=== PATIENT | male | born 1980 | race Two or more races ===

== ENCOUNTER 2017-03-14 00:16 | Emergency (ER) | payer MEDICAID, OTHER ==
[~2017-03-14] VITALS: Ht 172.7 cm; Wt 72.6 kg
[~2017-03-14 00:16] MED LIST: BENTYL10 MG ORAL; IBUPROFEN600 MG ORAL; MAALOX ADVANCE770 ML PO; NKM; NORCO 5-325 TA1 EACH ORAL
[2017-03-14 00:35] VITALS: BP 144/76
[2017-03-14] MEDS ORDERED: Lidocaine 1% MPF 10mg/ml 5ml INJ ONE (00:45)
[2017-03-14] MEDS ORDERED: Azithromycin 250mg tab ORAL ONE (00:45)
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
[2017-03-14 01:15] VITALS: BP 144/76
== END 2017-03-14 01:15 | disposition home or self-care (01) ==
LOC: EMR 00:41
DX: N34.2 Other urethritis (principal)
CPT/HCPCS: 96372; 99283; J0696; Q0144

== ENCOUNTER 2017-10-03 17:48 | Emergency (ER) | payer MEDICAID, OTHER ==
[~2017-10-03] VITALS: Ht 172.7 cm; Wt 71.7 kg
[2017-10-03 18:00] VITALS: BP 102/66
[2017-10-03] MEDS ORDERED: Acetaminophen 500mg (ES) tab ORAL ONE (18:30)
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
[2017-10-03] MEDS ORDERED: Tetanus/Diptheria/Pertussis Vaccine 0.5ml Syr IM ONE (18:45)
[2017-10-03] MEDS ORDERED: Lidocaine 1% Plain 30 ml INJ ONE (19:00)
[2017-10-03] MEDS ORDERED: ACETAMINOPHEN-1 EAC1 ORAL (20:40)
[2017-10-03] MEDS ORDERED: BACITRACIN-P28.35 GM TP (20:40)
[2017-10-03] MEDS ORDERED: Tylenol #3 tab (300mg/30mg) ORAL ONE (20:45)
[2017-10-03 20:58] VITALS: BP 132/79
[2017-10-03 21:00] VITALS: BP 132/79
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
== END 2017-10-03 21:00 | disposition home or self-care (01) ==
LOC: EMR 18:43
DX: S01.01XA Laceration without foreign body of scalp, initial encounter (principal); F12.10 Cannabis abuse, uncomplicated; Z23 Encounter for immunization; W20.8XXA Other cause of strike by thrown, projected or falling object, initial encounter; Y92.9 Unspecified place or not applicable
CPT/HCPCS: 12001; 70450; 90471; 90715; 96372; 99284; J2001; Z7502

== ENCOUNTER 2017-10-10 09:46 | Emergency (ER) | payer MEDICAID ==
[~2017-10-10] VITALS: Ht 172.7 cm; Wt 72.6 kg
[~2017-10-10 09:46] MED LIST changes: +ACETAMINOPHEN-1 EAC1 ORAL; +BACITRACIN-P28.35 GM TP
[2017-10-10 09:57] VITALS: BP 103/57
[2017-10-10 10:25] VITALS: BP 103/57
--- NOTE | 2017-10-10 10:50 | Emergency Room Report ---
History of Present Illness General Chief Complaint: Wound Recheck/Suture Removal Source: Patient Present Illness HPI Patient presents for evaluation of the yunior in the back of the scalp area Patient reports that he has some discomfort at the area specifically however there has been no discharge or redness patient reports that he has been washing the area aggressively Denies any neck pain or photophobia Denies any focal weakness Allergies: Coded Allergies: No Known Allergies (Unverified , 03/14/17) Patient History Past Medical History: see triage record Pertinent Family History: none Reviewed Nursing Documentation: PMH: Agreed; PSxH: Agreed Nursing Documentation-PMH Past Medical History: No Stated History Review of Systems All Other Systems: negative except mentioned in HPI Physical Exam Vital Signs Date Time Temp Pulse Resp B/P (MAP) Pulse Ox O2 Delivery O2 Flow Rate FiO2 10/10/17 09:53 97.7 58 18 103/57 96 Room Air 97.7 Sp02 EP Interpretation: reviewed, normal General Appearance: well appearing, no apparent distress Head: other - [address] in the top occipital region Eyes: bilateral eye PERRL, bilateral eye EOMI ENT: normal pharynx Neck: supple Respiratory: lungs clear Musculoskeletal: normal inspection Neurologic: alert, oriented x3, responsive Skin: other - [address] no obvious dehiscence, healing in process no other hematoma Lymphatic: no adenopathy Medical Decision Making Diagnostic Impression: Primary Impression: Encounter for wound re-check Additional Impression: Encounter for removal of sutures ER Course Using a staple removal in the usual fashion the very bottom Ecru removed without any incidents Further examination of the laceration reveals continued healing and process I did not feel that removal of the yunior would be appropriate at this time as I feel it would lead to dehiscence And the patient will require repeat evaluation Last Vital Signs Date Time Temp Pulse Resp B/P (MAP) Pulse Ox O2 Delivery O2 Flow Rate FiO2 10/10/17 10:25 97.7 18 103/57 96 Room Air 207.9 10/10/17 09:53 58 Status: improved Disposition: HOME, SELF-CARE Condition: Improved Referrals: NON PHYSICIAN (PCP) Patient Instructions: Wound Check Additional Instructions: One staple was removed however there is still healing process at this time. The area appears to likely require another 5 days for healing. Please follow- up with your primary physician for continued evaluation and removal. You can also return here for further care as well if you are unable to follow up with primary physician Vaishali Mclain DO Oct 10, 2017 10:50
== END 2017-10-10 10:25 | disposition home or self-care (01) ==
LOC: EMR 10:05
DX: Z48.02 Encounter for removal of sutures (principal)
CPT/HCPCS: 99282

== ENCOUNTER 2017-10-14 10:00 | Emergency (ER) | payer MEDICAID ==
[~2017-10-14] VITALS: Ht 172.7 cm; Wt 72.6 kg
--- NOTE | 2017-10-14 10:35 | Emergency Room Report ---
History of Present Illness General Chief Complaint: Wound Recheck/Suture Removal Source: Patient Present Illness HPI Patient is a 37-year-old male presented for staple removal after the recent repair. Patient had yunior placed approximately 2 weeks ago. He denies any fever. Denies any discharge from the wound. He denies any severe pain. Patient reports having some residual headaches which had gradually been improving. He denies any numbness or weakness. He denies any other complaints. Allergies: Coded Allergies: No Known Allergies (Unverified , 03/14/17) Patient History Reviewed Nursing Documentation: PMH: Agreed; PSxH: Agreed Nursing Documentation-PM Past Medical History: No Stated History Review of Systems All Other Systems: negative except mentioned in HPI Physical Exam Vital Signs Date Time Temp Pulse Resp B/P (MAP) Pulse Ox O2 Delivery O2 Flow Rate FiO2 10/14/17 10:13 97.8 56 16 114/64 97 Room Air 97.9 General Appearance: well appearing, no apparent distress, alert, GCS 15 Head: normocephalic, atraumatic ENT: hearing grossly normal, normal voice Neck: full range of motion, supple Respiratory: no respiratory distress, speaking full sentences Musculoskeletal: no calf tenderness Neurologic: normal gait Psychiatric: mood/affect normal Skin: no rash, other - healing wound no infection Medical Decision Making Diagnostic Impression: Primary Impression: Removal of staple ER Course Patient presented for wound check. Differential diagnosis included was not limited to infected wound, nonhealed wound, neuroma, healed wound. The patient' s wound appears well-healed. Yunior are removed. Patient is advised to return if any worsening condition or if any changes in status that are concerning. This report is dictated with [employer] woodwind instrument repairer software which may occasionally lead to discrepancies related to use of this software. Last Vital Signs Date Time Temp Pulse Resp B/P (MAP) Pulse Ox O2 Delivery O2 Flow Rate FiO2 10/14/17 10:13 97.8 56 16 114/64 97 Room Air 97.9 Status: improved Disposition: HOME, SELF-CARE Condition: Stable Patient Instructions: Wound Closure Removal Ted Palacio MD Oct 14, 2017 10:35
[2017-10-14 12:31] VITALS: BP 114/64
[2017-10-14 12:34] VITALS: BP 114/64
== END 2017-10-14 11:00 | disposition home or self-care (01) ==
LOC: EMR 10:40
DX: Z48.02 Encounter for removal of sutures (principal)
CPT/HCPCS: 99281

== ENCOUNTER 2018-01-01 05:49 | Emergency (ER) | payer MEDICAID ==
[~2018-01-01] VITALS: Ht 172.7 cm; Wt 72.6 kg
[2018-01-01] MEDS ORDERED: IBUPROFEN600 MG ORAL (06:09)
[2018-01-01 06:10] VITALS: BP 99/61
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
[2018-01-01 07:26] VITALS: BP 101/63
== END 2018-01-01 07:29 | disposition home or self-care (01) ==
LOC: EMR 07:10
DX: S09.90XA Unspecified injury of head, initial encounter (principal); W22.8XXA Striking against or struck by other objects, initial encounter; Y92.89 Other specified places as the place of occurrence of the external cause
CPT/HCPCS: 70450; 99284

== ENCOUNTER 2018-03-30 12:48 | Emergency (ER) | payer MEDICAID ==
[~2018-03-30] VITALS: Ht 172.7 cm; Wt 72.6 kg
[2018-03-30] MEDS ORDERED: NKM (13:02)
[2018-03-30] MEDS ORDERED: Ketorolac 30mg Inj IM ONE (13:30)
[2018-03-30 14:14] VITALS: BP 125/70
[2018-03-30 14:21] VITALS: BP 125/70
--- NOTE | 2018-03-30 14:27 | Emergency Room Report ---
History of Present Illness General Chief Complaint: Headache Source: Patient Present Illness HPI 37-year-old male presents emergency department complaining of 10 out of 10 in severity progressive headache that he describes as constant and pounding, body aches, low back pain in addition to nasal congestion, rhinorrhea, nonproductive cough and fevers and chills 2 days. Patient reports that he also recently returned from [facility] and [place] and states [place]. Patient states he is not up-to-date with vaccinations, and he did not receive any vaccinations prior to traveling. Patient reports some neck pain without stiffness, pt. reports his low back pain is most prominent. Patient states he has a history of herniated disc pain which is now exacerbated. She reports to ill contacts staining his daughters just getting over a viral illness. Denies photophobia. Reports decreased appetite and nausea he denies vomiting. Patient has been taking Motrin which is not providing any relief. Denies rashes. muscle weakness, dizziness, CP,SOB, or sudden onset of his SANDERS. Allergies: Coded Allergies: No Known Allergies (Unverified , 03/14/17) Patient History Past Medical History: see triage record Past Surgical History: none Pertinent Family History: none Immunizations: other Reviewed Nursing Documentation: PMH: Agreed; PSxH: Agreed Nursing Documentation-PMH Past Medical History: No Stated History Review of Systems All Other Systems: negative except mentioned in HPI Physical Exam Vital Signs Date Time Temp Pulse Resp B/P (MAP) Pulse Ox O2 Delivery O2 Flow Rate FiO2 03/30/18 12:55 100.0 101 22 125/70 98 Room Air Sp02 EP Interpretation: reviewed, normal General Appearance: alert, GCS 15, non-toxic, mild distress Head: normocephalic, atraumatic Eyes: bilateral eye normal inspection, bilateral eye PERRL, bilateral eye other - no photophobia ENT: hearing grossly normal, normal voice, uvula midline, moist mucus membranes , nasal congestion - clear rhinorrhea bilaterally-moderate amt, , pharyngeal erythema Neck: full range of motion, no meningismus, tender lateral - bilateral trapezius ttp. no midline ttp Respiratory: chest non-tender, lungs clear, normal breath sounds, no respiratory distress, no accessory muscle use, no wheezing, speaking full sentences Cardiovascular #1: regular rate, rhythm Gastrointestinal: non tender, soft Musculoskeletal: back normal, gait/station normal, normal range of motion, non- tender, tender - TTP to the paraspinal musculature of the lumbar spine. no midline ttp, FROM and ambulatory without assistance. Neurologic: alert, oriented x3, responsive, motor strength/tone normal, sensory intact, normal gait, speech normal, grossly normal Psychiatric: judgement/insight normal Skin: normal color, no rash, warm/dry, well hydrated Lymphatic: no adenopathy Medical Decision Making PA Attestation Dr. Shaikh is my supervising physician whom pt. management has been discussed with. Diagnostic Impression: Primary Impression: Acute viral syndrome ER Course 37-year-old male presents emergency department complaining of 10 out of 10 in severity progressive headache that he describes as constant and pounding, body aches, low back pain in addition to nasal congestion, rhinorrhea, nonproductive cough and fevers and chills 2 days. Patient reports that he also recently returned from [facility] and [place] and states that [place]. Patient states he is not up-to-date with vaccinations, and he did not receive any vaccinations prior to traveling. Patient reports some neck pain without stiffness, pt. reports his low back pain is most prominent. Patient states he has a history of herniated disc pain which is now exacerbated. She reports to ill contacts staining his daughters just getting over a viral illness. Denies photophobia. Reports decreased appetite and nausea he denies vomiting. Patient has been taking Motrin which is not providing any relief. Denies rashes. muscle weakness, dizziness, CP,SOB, or sudden onset of his SANDERS. Ddx considered but are not limited to URI, pneumonia, PE, strep pharyngitis, meningitis, influenza, OM/OE just to name a few. Vital signs: Pt. is afebrile, the remaining VS are WNL H&PE are most consistent with Viral Syndrome suspicious for Influenza will treat clinically - no meningeal signs, Lungs are clear and oropharynx is not involved, no evidence of bacterial infection at this time. ORDERS: none required at this time, the diagnosis is clinical ED INTERVENTIONS: -Toradol -Lidoderm -Tylenol PO VS checked several times during ED visit. Tachycardia resolved, pt. has developed a low grade fever by definition exactly 100.4. -Pt. reports he is feeling better and is comfortable going home. --PT. EDUCATION: --I discussed with this patient that I will be prescribing Tamiflu which is an antiviral. This medication is not always covered by insurance and is not always available at pharmacies. I educated patient that this medication has been shown to reduce viral symptoms by 1 day, and if unable to obtain there is no alternative, and to continue conservative treatment. -- Also D/w pt. additional information regarding Viral febrile illnesses, and d /w regarding diseases endemic to [facility] and [place] which he just returned from. DISCHARGE: At this time pt. is stable for d/c to home. Will provide printed patient care instructions, and any necessary prescriptions. Care plan and follow up instructions have been discussed with the patient prior to discharge. Last Vital Signs Date Time Temp Pulse Resp B/P (MAP) Pulse Ox O2 Delivery O2 Flow Rate FiO2 03/30/18 14:14 100.4 22 125/70 98 Room Air 03/30/18 12:55 101 Disposition: HOME, SELF-CARE Condition: Stable Scripts Codeine/Promethazine Hcl* (PROMETHAZINE-CODEINE SYRUP*) 118 Ml Syrup 5 ML ORAL Q6H PRN for For Cough, #120 ML 0 Refills Prov: Katy Vee 03/30/18 Methocarbamol* (ROBAXIN-750*) 750 Mg Tablet 750 MG PO QID, #28 TAB 0 Refills Prov: Katy Vee 03/30/18 Acetaminophen* (TYLENOL EXTRA STRENGTH*) 500 Mg Tablet 500 MG ORAL Q6H PRN for Mild Pain/Temp > 100.5, #30 TAB 0 Refills Prov: Katy Vee 03/30/18 Oseltamivir Phosphate (Tamiflu) 75 Mg Capsule 75 MG ORAL TWICE A DAY for 5 Days, #10 CAP Prov: Katy Vee 03/30/18 Referrals: NON PHYSICIAN (PCP) Departure Forms: Return to Work Return to Work Date: Apr 04, 2018 Work Restrictions: None Other Restrictions: May return Sooner if Symptoms have resolved. Return to Full Activity: Apr 04, 2018 Patient Instructions: VIS, Sami Encephalitis - CDC, Viral Encephalitis Additional Instructions: Take medications as directed. Follow up with a Primary Care Provider in 3-5 days, even if your symptoms have resolved. --Please review list of primary care clinics, if you do not already have a primary care provider Return sooner to ED if new symptoms occur, or current symptoms become worse. Do not drink alcohol, drive, or operate heavy machinery while taking Cough Syrup as this may cause drowsiness. Caution is advised to us attention to worsening of symptoms please see list of symptoms provided below as he just returned from a country that has endemic viral illnesses that present with fevers this is something that is being considered as a cause of your symptoms. With worsenig of current symptoms or development of new symptoms Return promptly to the emergency department. Drink plenty of fluids to stay hydrated, and take prescribed medications as directed. Sami Encephalitis Virus (JE) - Endemic to [facility] and [place] - Transmitted through the bite of a mosquito you have been identified as moderate risk due to [place] without proper protective equiptment such as mosquito nets. CLINICAL SYMPTOMS : The incubation period is 5 15 days. Illness usually begins with sudden onset of fever, headache, and vomiting. CRITICAL SYMPTOMS: Mental status changes, focal neurologic deficits, generalized weakness, and movement disorders may develop over the next few days. The classical description of JE includes a parkinsonian syndrome with mask -like facies, tremor, cogwheel rigidity, and choreoathetoid movements( Jerking movements that dont stop). Acute flaccid paralysis, with clinical and pathological features similar to those of poliomyelitis ( muscle stiffness/ weakness), has also been associated with JE virus infection. Seizures are common , especially among children. This information was taken from the [facility] clinican website for endemic diseases in [facility] and [place]. - Please note that this Emergency Department Report was dictated using [employer] traffic superintendent technology software, occasionally this can lead to erroneous entry secondary to interpretation by the dictation equipment. Katy Vee Mar 30, 2018 14:27
[2018-03-30] MEDS ORDERED: TAMIFLU75 MG ORAL (14:29)
[2018-03-30] MEDS ORDERED: PROMETHAZINE-C118 M1 ORAL (14:29)
[2018-03-30] MEDS ORDERED: TYLENOL EXTRA500 MG ORAL (14:29)
[2018-03-30] MEDS ORDERED: ROBAXIN-750750 MG PO (14:29)
[2018-03-31] MEDS ORDERED: UNOBMED (03:58)
[2018-03-31] MEDS ORDERED: NORCO 5-325 TA1 EACH ORAL (05:41)
== END 2018-03-30 15:03 | disposition home or self-care (01) ==
LOC: EMR 13:43
DX: B34.9 Viral infection, unspecified (principal); R51 Headache
CPT/HCPCS: 96372; 99283; J1885

== ENCOUNTER 2018-03-31 03:50 | Emergency (ER) | payer MEDICAID ==
[~2018-03-31] VITALS: Ht 172.7 cm; Wt 72.6 kg
[~2018-03-31 03:50] MED LIST changes: +PROMETHAZINE-C118 M1 ORAL; +ROBAXIN-750750 MG PO; +TAMIFLU75 MG ORAL; +TYLENOL EXTRA500 MG ORAL
[2018-03-31] MEDS ORDERED: UNOBMED (03:58)
[2018-03-31 04:04] VITALS: BP 124/93
--- NOTE | 2018-03-31 04:09 | Emergency Room Report ---
History of Present Illness General Chief Complaint: Headache Source: Patient Present Illness HPI Patient present with complaints of ongoing headache Reports that he was seen earlier today after taking the medication he feels similar Patient reports a pounding headache He reports that he has decreased oral intake Increased nausea Patient also reports he had recent visit to out of the country to [place] was having some epigastric discomfort also shortness of breath And it was felt that he had some flu symptoms Denies any neck pain Denies any focal weakness Patient reports that he had an epidural about 3 weeks ago for herniated low back disc Denies any bowel or urinary incontinence Allergies: Coded Allergies: No Known Allergies (Unverified , 03/14/17) Patient History Past Medical History: see triage record Pertinent Family History: none Reviewed Nursing Documentation: PMH: Agreed; PSxH: Agreed Nursing Documentation-PMH Past Medical History: No History, Except For Hx Cardiac Problems: No - VIT D defficient Review of Systems All Other Systems: negative except mentioned in HPI Physical Exam Vital Signs Date Time Temp Pulse Resp B/P (MAP) Pulse Ox O2 Delivery O2 Flow Rate FiO2 03/31/18 03:55 99.7 98 16 160/76 96 Room Air Sp02 EP Interpretation: reviewed, normal General Appearance: mild distress - In acute pain Head: normocephalic, atraumatic Eyes: bilateral eye PERRL, bilateral eye EOMI ENT: hearing grossly normal, normal pharynx Neck: full range of motion, supple, no meningismus Respiratory: lungs clear Cardiovascular #1: regular rate, rhythm Gastrointestinal: non tender, soft Musculoskeletal: normal inspection, back normal Neurologic: alert, oriented x3, responsive Skin: normal color, no rash Lymphatic: no adenopathy Medical Decision Making Diagnostic Impression: Primary Impression: Headache ER Course Multiple differentials including but not limited to neurological, neurosurgical , infectious pathology entertained Patient resting comfortably Further hydration was provided Given his repeat presentation more extensive workup was initiated Patient's white blood cell count is normal patient remains afebrile and does not appear septic or toxic Patient is recommended to follow closely with his pain management Labs Test 03/31/18 04:45 White Blood Count 6.8 K/UL (4.8-10.8) Red Blood Count 4.90 M/UL (4.70-6.10) Hemoglobin 14.7 G/DL (14.2-18.0) Hematocrit 42.0 % (42.0-52.0) Mean Corpuscular Volume 86 FL (80-99) Mean Corpuscular Hemoglobin 29.9 PG (27.0-31.0) Mean Corpuscular Hemoglobin Concent 34.9 G/DL (32.0-36.0) Red Cell Distribution Width 10.8 % (11.6-14.8) Platelet Count 219 K/UL (150-450) Mean Platelet Volume 6.2 FL (6.5-10.1) Neutrophils (%) (Auto) 69.6 % (45.0-75.0) Lymphocytes (%) (Auto) 15.1 % (20.0-45.0) Monocytes (%) (Auto) 13.4 % (1.0-10.0) Eosinophils (%) (Auto) 0.6 % (0.0-3.0) Basophils (%) (Auto) 1.3 % (0.0-2.0) Sodium Level 140 MMOL/L (136-145) Potassium Level 3.8 MMOL/L (3.5-5.1) Chloride Level 103 MMOL/L (98-107) Carbon Dioxide Level 30 MMOL/L (21-32) Anion Gap 7 mmol/L (5-15) Blood Urea Nitrogen 11 mg/dL (7-18) Creatinine 1.1 MG/DL (0.55-1.30) Estimat Glomerular Filtration Rate > 60 mL/min (>60) Glucose Level 97 MG/DL (74-106) Calcium Level 8.9 MG/DL (8.5-10.1) Total Bilirubin 0.5 MG/DL (0.2-1.0) Aspartate Amino Transf (AST/SGOT) 17 U/L (15-37) Alanine Aminotransferase (ALT/SGPT) 29 U/L (12-78) Alkaline Phosphatase 69 U/L (46-116) Total Protein 8.4 G/DL (6.4-8.2) Albumin 3.8 G/DL (3.4-5.0) Globulin 4.6 g/dL Albumin/Globulin Ratio 0.8 (1.0-2.7) Chest X-Ray Diagnostic Results Chest X-Ray Diagnostic Results : Chest X-Ray Ordered: Yes # of Views/Limited/Complete: 1 View Indication: Chest Pain EP Interpretation: Yes Interpretation: no consolidation, no effusion, no pneumothorax Impression: No acute disease Electronically Signed by: Vaishali Mclain DO Last Vital Signs Date Time Temp Pulse Resp B/P (MAP) Pulse Ox O2 Delivery O2 Flow Rate FiO2 03/31/18 03:55 99.7 98 16 160/76 96 Room Air Status: improved Disposition: HOME, SELF-CARE Condition: Improved Scripts Hydrocodone Bit/Acetaminophen 5-325* (NORCO 5-325*) 1 Each Tablet 1 TAB ORAL Q8HR PRN for For Pain, #10 TAB 0 Refills Prov: Vaishali Mclain DO 03/31/18 Additional Instructions: Patient is provided with the discharge instructions notified to follow up with primary doctor in the next 2-3 days otherwise return to the er with any worsening symptoms. Please note that this report is being documented using [employer] technology. This can lead to erroneous entry secondary to incorrect interpretation by the dictating instrument. Vaishali Mclain DO Mar 31, 2018 04:09
[2018-03-31] MEDS ORDERED: Ketorolac 30mg Inj IV ONE (04:15)
[2018-03-31] MEDS ORDERED: Ketorolac 30mg Inj ONE (04:25)
[2018-03-31 04:48] VITALS: BP 124/93
[2018-03-31 04:54] LABS: BASOPHILS % (AUTO) 1.3 % (0.0-2.0); EOSINOPHILS % (AUTO) 0.6 % (0.0-3.0); HEMOGLOBIN 14.7 G/DL (14.2-18.0); LYMPHOCYTES % (AUTO) 15.1 % (20.0-45.0); MEAN CORPUSCULAR VOLUME 86 FL (80-99); MONOCYTES % (AUTO) 13.4 % (1.0-10.0); NEUTROPHILS % (AUTO) 69.6 % (45.0-75.0); PLATELET COUNT 219 K/UL (150-450); RED CELL DISTRIBUTION WIDTH 10.8 % (11.6-14.8); WHITE BLOOD COUNT 6.8 K/UL (4.8-10.8)
[2018-03-31 05:10] LABS: ANION GAP 7 mmol/L (5-15); BLOOD UREA NITROGEN 11 mg/dL (7-18); CALCIUM 8.9 MG/DL (8.5-10.1); CARBON DIOXIDE 30 MMOL/L (21-32); CHLORIDE 103 MMOL/L (98-107); CREATININE 1.1 MG/DL (0.55-1.30); POTASSIUM 3.8 MMOL/L (3.5-5.1); SODIUM 140 MMOL/L (136-145)
[2018-03-31 05:15] LABS: ALANINE AMINOTRANSFERASE 29 U/L (12-78); ALBUMIN 3.8 G/DL (3.4-5.0); ALBUMIN/GLOBULIN RATIO 0.8 (1.0-2.7); ALKALINE PHOSPHATASE 69 U/L (46-116); ASPARTATE AMINO TRANSFERASE 17 U/L (15-37); BILIRUBIN,TOTAL 0.5 MG/DL (0.2-1.0)
[2018-03-31] MEDS ORDERED: DiphenhydrAMINE 50mg/ml Inj IVP ONE (05:15)
[2018-03-31] MEDS ORDERED: HYDROcodone/Acetamin 10/325 tab ORAL ONE (05:15)
[2018-03-31] MEDS ORDERED: HYDROcodone/Acetamin 10/325 tab ONE (05:19)
[2018-03-31] MEDS ORDERED: DiphenhydrAMINE 50mg/ml Inj ONE (05:22)
[2018-03-31] MEDS ORDERED: NORCO 5-325 TA1 EACH ORAL (05:41)
[2018-03-31 05:49] VITALS: BP 124/74
--- NOTE | 2018-03-31 09:50 | Diagnostic Imaging Report ---
Indication: Shortness of breath Technique: One view of the chest Comparison: none Findings: Lungs and pleural spaces are clear. Heart size is normal. There is mild thoracic scoliotic deformity Impression: No acute process
== END 2018-03-31 05:49 | disposition home or self-care (01) ==
LOC: EMR 04:05
DX: R51 Headache (principal)
CPT/HCPCS: 36415; 71045; 80053; 85025; 96361; 96374; 96375; 99284; J1200; J1885

== ENCOUNTER 2018-04-04 00:15 | Emergency (ER) | payer MEDICAID, OTHER ==
[~2018-04-04] VITALS: Ht 172.7 cm; Wt 72.6 kg
[~2018-04-04 00:15] MED LIST changes: +UNOBMED
[2018-04-04 00:29] VITALS: BP 142/57
[2018-04-04] MEDS ORDERED: Augmentin 875mg Tab ORAL ONE (01:15)
--- NOTE | 2018-04-04 01:27 | Emergency Room Report ---
History of Present Illness General Chief Complaint: Pain Source: Patient, Medical Record Present Illness HPI Mr. Tena is a healthy 37 yo male who has presented to ER twice this week for fever headache cough chills. Had improved but symptoms returned. Currently taking Tamiflu. Two other family members with similar symptoms at home. Recently returned from [place] and [place] earlier this month. Pain is located behind right eye and at the right maxilla. Mild nasal congestion. Pain is 8/10. Tylenol provided mild relief. Patient did not fill norco prescription provided to him by my colleague on most recent ED visit. He wanted to tough out the pain. He did have a good day today. However, the chills and headache returned tonight. Allergies: Coded Allergies: No Known Allergies (Unverified , 03/14/17) Patient History Past Medical History: see triage record, old chart reviewed Pertinent Family History: other - not pertinent to today's exam Social History: Reports: drug use - Marijuana; Denies: smoking, alcohol use Reviewed Nursing Documentation: PMH: Agreed; PSxH: Agreed Nursing Documentation-PMH Hx Cardiac Problems: No - VIT D defficient Review of Systems Constitutional: Reports: chills, fever, malaise Respiratory: Reports: cough Neurological: Reports: headache All Other Systems: negative except mentioned in HPI Physical Exam Vital Signs Date Time Temp Pulse Resp B/P (MAP) Pulse Ox O2 Delivery O2 Flow Rate FiO2 04/04/18 00:20 99.5 94 16 144/59 95 Room Air Sp02 EP Interpretation: reviewed, normal General Appearance: no apparent distress, alert, GCS 15, non-toxic Head: normocephalic, atraumatic Eyes: bilateral eye normal inspection ENT: hearing grossly normal, normal pharynx, no angioedema, normal voice Neck: full range of motion, supple/symm/no masses Respiratory: chest non-tender, lungs clear, normal breath sounds, no rhonchi, no respiratory distress, no retraction, no accessory muscle use, speaking full sentences Cardiovascular #1: regular rate, rhythm, no edema, no gallop, no JVD, no murmur , no rub Gastrointestinal: normal bowel sounds, non tender, soft, no mass, no organomegaly, no peritonitis, no bruit, non-distended, no guarding, no rebound Musculoskeletal: back normal, gait/station normal, normal range of motion, non- tender, calf tenderness Neurologic: alert, oriented x3, responsive, motor strength/tone normal, sensory intact, speech normal Psychiatric: judgement/insight normal, memory normal, mood/affect normal, no suicidal/homicidal ideation Skin: normal color, no rash, warm/dry, well hydrated Medical Decision Making Diagnostic Impression: Primary Impression: Sinus headache Additional Impression: Flu-like symptoms ER Course Mr. Tena presents to ER for a third time for headache and flu-like symptoms. I did observe frequent cough. I do suspect influenza. I agree with continuing tamiflu. Patient's headache appears to be sinusitis. Due to severe symptoms, antibiotics are indicated. rx: augmentin. I encouraged him to fill prescription of [place] which he still has in his possession. No indication of ICH, meningitis or dangerous headache. Last Vital Signs Date Time Temp Pulse Resp B/P (MAP) Pulse Ox O2 Delivery O2 Flow Rate FiO2 04/04/18 00:20 99.5 94 16 144/59 95 Room Air Condition: Stable Selam Cee MD Apr 04, 2018 01:27
[2018-04-04] MEDS ORDERED: AUGMENTIN 875-1 EAC1 ORAL (01:28)
[2018-04-04 01:40] VITALS: BP 139/68
== END 2018-04-04 01:40 | disposition home or self-care (01) ==
LOC: EMR 00:28
DX: R51 Headache (principal); R50.9 Fever, unspecified; M79.10 Myalgia, unspecified site; F12.10 Cannabis abuse, uncomplicated
CPT/HCPCS: 99282

== ENCOUNTER 2018-05-06 00:18 | Emergency (ER) | payer OTHER ==
[~2018-05-06] VITALS: Ht 172.7 cm; Wt 74.8 kg
[~2018-05-06 00:18] MED LIST changes: +AUGMENTIN 875-1 EAC1 ORAL
[2018-05-06 00:34] VITALS: BP 133/74
[2018-05-06] MEDS ORDERED: ALBUTEROL SULF8.5 GM INH (00:42)
[2018-05-06] MEDS ORDERED: PREDNISONE20 MG ORAL (00:42)
--- NOTE | 2018-05-06 00:42 | Emergency Room Report ---
History of Present Illness General Chief Complaint: Upper Respiratory Illness Source: Patient Present Illness [facility] This is a 37-year-old male with no past medical history. He presents with cough and congestion. Onset this morning. Also with runny nose. No fever chills. Worse with inspiration. Coughing is productive of phlegm. No nausea no vomiting. No diarrhea. Allergies: Coded Allergies: No Known Allergies (Unverified , 03/14/17) Patient History Past Medical History: see triage record, old chart reviewed Past Surgical History: none Pertinent Family History: none Social History: Denies: smoking Immunizations: other Reviewed Nursing Documentation: PMH: Agreed; PSxH: Agreed Nursing Documentation-PMH Past Medical History: No Stated History Hx Cardiac Problems: No - VIT D defficient Review of Systems Eye: Denies: eye pain, blurred vision ENT: Reports: nose congestion; Denies: ear pain, throat swelling Respiratory: Reports: cough, shortness of breath Cardiovascular: Denies: chest pain, palpitations Gastrointestinal: Denies: abdominal pain, diarrhea, nausea, vomiting Musculoskeletal: Denies: back pain, joint pain Skin: Denies: rash Neurological: Denies: headache, numbness Endocrine: Denies: increased thirst, increased urine Hematologic/Lymphatic: Denies: easy bruising All Other Systems: negative except mentioned in HPI Physical Exam Vital Signs Date Time Temp Pulse Resp B/P (MAP) Pulse Ox O2 Delivery O2 Flow Rate FiO2 05/06/18 00:28 98.2 73 15 133/74 99 Room Air 05/06/18 00:34 99 vitals normal Sp02 EP Interpretation: reviewed, normal General Appearance: well appearing, no apparent distress, alert Head: normocephalic, atraumatic Eyes: bilateral eye PERRL, bilateral eye EOMI ENT: hearing grossly normal, normal pharynx Neck: full range of motion, supple, no meningismus Respiratory: chest non-tender, wheezing Cardiovascular #1: regular rate, rhythm, no murmur Gastrointestinal: normal bowel sounds, non tender, no mass, no organomegaly, no bruit, non-distended Musculoskeletal: back normal, gait/station normal, normal range of motion Psychiatric: mood/affect normal Skin: warm/dry Medical Decision Making Diagnostic Impression: Primary Impression: Upper respiratory infection Qualified Codes: J06.9 - Acute upper respiratory infection, unspecified Additional Impression: Acute asthmatic bronchitis ER Course Patient with a viral bronchitis with bronchospasm and wheezing. Better after breathing treatment. We'll discharge home. No evidence of ACS, PE, pneumonia or other serious bacterial infection. Last Vital Signs Date Time Temp Pulse Resp B/P (MAP) Pulse Ox O2 Delivery O2 Flow Rate FiO2 05/06/18 00:34 73 15 Room Air 99 05/06/18 00:34 98.2 133/74 99 Status: improved Disposition: HOME, SELF-CARE Condition: Stable Scripts Prednisone* (PREDNISONE*) 20 Mg Tablet 40 MG ORAL DAILY, #8 TAB Prov: Miguel Bella MD 05/06/18 Albuterol Sulfate* (ALBUTEROL SULFATE MDI*) 8.5 Gm Hfa.aer.ad 2 PUFF INH Q4H PRN for cough/wheezing, #1 EA 0 Refills Prov: Miguel Bella MD 05/06/18 Patient Instructions: Upper Respiratory Infection, Adult Additional Instructions: Follow-up with your doctor in 7 days. Return if symptom worsen. Miguel Bella MD May 06, 2018 00:42
[2018-05-06] MEDS ORDERED: Albuterol ud Inhalation HHN ONE (00:45)
[2018-05-06] MEDS ORDERED: Albuterol ud Inhalation ONE (00:46)
[2018-05-06 01:09] VITALS: BP 128/75
[2018-05-06 01:12] VITALS: BP 128/75
== END 2018-05-06 01:14 | disposition home or self-care (01) ==
LOC: EMR 00:35
DX: J06.9 Acute upper respiratory infection, unspecified (principal); J45.909 Unspecified asthma, uncomplicated
CPT/HCPCS: 94640; 94664; 99284; J7512

== ENCOUNTER 2018-06-03 16:55 | Emergency (ER) | payer MEDICAID, OTHER ==
[~2018-06-03] VITALS: Ht 170.2 cm; Wt 77.1 kg
[~2018-06-03 16:55] MED LIST changes: +ALBUTEROL SULF8.5 GM INH; +PREDNISONE20 MG ORAL
[2018-06-03] MEDS ORDERED: VENTOLIN HFA18 GM INH (17:05)
[2018-06-03 17:17] VITALS: BP 107/69
--- NOTE | 2018-06-03 17:24 | Emergency Room Report ---
History of Present Illness General Chief Complaint: Upper Respiratory Illness Source: Patient Present Illness HPI 37-year-old male patient presents the ER complaining of cough and wheezing for the past 4 days. Reports rhinorrhea during this time. Reports is been using his inhaler which helps moderately with his symptoms however does not complete resolving. Reports history of smoking marijuana, denies history of smoking cigarettes. Reports cough cough that was initially dry but has been with sputum for the past day. Denies hemoptysis. Denies chest pain, shortness of breath. Denies history of asthma or heart disease. Patient was previously seen here 1 month ago for similar symptoms, states they resolved after treatment however symptoms returned recently. States not seen primary care provider or pulmonology specialist. Denies recent travel. Denies other aggravating or relieving factors. Allergies: Coded Allergies: No Known Allergies (Unverified , 03/14/17) Patient History Past Medical History: see triage record Reviewed Nursing Documentation: PMH: Agreed; PSxH: Agreed Nursing Documentation-PMH Past Medical History: No History, Except For Hx Cardiac Problems: No - VIT D defficient Review of Systems All Other Systems: negative except mentioned in HPI Physical Exam Vital Signs Date Time Temp Pulse Resp B/P (MAP) Pulse Ox O2 Delivery O2 Flow Rate FiO2 06/03/18 17:01 98.8 79 17 107/69 93 Room Air 06/03/18 17:17 95 Sp02 EP Interpretation: reviewed, normal General Appearance: well appearing, no apparent distress, alert, GCS 15, non- toxic Head: normocephalic, atraumatic Eyes: bilateral eye normal inspection, bilateral eye PERRL ENT: hearing grossly normal, normal pharynx, no angioedema, normal voice, TMs + canals normal, uvula midline, moist mucus membranes, nasal congestion Neck: full range of motion, no meningismus Respiratory: lungs clear, normal breath sounds, no rhonchi, no respiratory distress, no accessory muscle use, speaking full sentences, wheezing Cardiovascular #1: regular rate, rhythm, no edema Musculoskeletal: back normal, digits/nails normal, gait/station normal, normal range of motion, non-tender, no calf tenderness, Nicole's Sign negative Neurologic: alert, oriented x3, responsive, motor strength/tone normal, sensory intact Psychiatric: mood/affect normal Skin: no rash Medical Decision Making PA Attestation Dr. Palacio is my supervising Physician whom patient management has been discussed with. Diagnostic Impression: Primary Impression: Upper respiratory infection Additional Impression: Bronchitis ER Course Pt presents to ED c/o cough and wheezing symptoms. DDX considered but are not limited to asthma, viral URI, influenza, bronchitis, pneumonia. VITAL SIGNS are WNL, patient is afebrile. Ordered breathing treatment and medication. ER COURSE Chest x-ray negative for acute disease. Low suspicion for pneumonia. Discuss results with the patient. Provided patient with copy of results. Instructed patient to followup with PCP and discuss results of report with patient, discuss need for further treatment and referral. Patient provided with prednisone. Duoneb breathing treatment provided. Following treatment patient states no longer having difficulty with breathing. Lung sounds improved. Patient is resting comfortably in no acute distress. ER precautions given. Follow-up with primary care provider discussed referral to pulmonology, discussed need for inhaled steroid medication. DISCHARGE: -Rx given for Prednisone. -Rx provided for Albuterol MDI. -Rx provided for fluticasone Rx provided for Sudafed At this time pt is stable for d/c to home. Patient is resting comfortably in no acute distress, nontoxic appearing, able to answer questions without difficulty. Patient to take medications as instructed Will provide with patient care instructions and any necessary prescriptions. Care plan and follow-up instructions provided. Patient instructed to follow-up with primary care provider in 3 - 5 days. Patient questions asked and answered. Patient reports understanding and agreement to treatment plan. ER precautions given. Patient instructed to return to ER immediately for any new or worsening of symptoms including but not limited to increasing SOB, persistent fever. - Please note that this Emergency Department Report was dictated using [employer] specialist technology software, occasionally this can lead to erroneous entry secondary to interpretation by the dictation equipment. Chest X-Ray Diagnostic Results Chest X-Ray Diagnostic Results : Chest X-Ray Ordered: Yes # of Views/Limited/Complete: 1 View Indication: Chest Pain EP Interpretation: Yes PA Xray: Interpretation reviewed, by supervising MD, and agrees with findings. Interpretation: no consolidation, no effusion, no pneumothorax, no acute cardiopulmonary disease Impression: No acute disease ANJANA CarrilloibRafael Andrew PA-C Last Vital Signs Date Time Temp Pulse Resp B/P (MAP) Pulse Ox O2 Delivery O2 Flow Rate FiO2 06/03/18 17:17 79 17 Room Air 95 06/03/18 17:17 98.8 107/69 93 Status: improved Disposition: HOME, SELF-CARE Condition: Stable Scripts Fluticasone Propionate* (FLUTICASONE PROPIONATE*) 16 Gm [place].susp 1 SPRAY NASAL TWICE A DAY, #16 GM Prov: Kiet Andrew 06/03/18 Guaifen/Phenyleph/Acetaminophn (Sudafed PE Pressure+Pain+Mucus) 1 Each Tablet 1 EACH PO TID, #24 TAB Prov: Kiet Andrew 06/03/18 Albuterol Sulfate* (ALBUTEROL SULFATE MDI*) 8.5 Gm Hfa.aer.ad 2 PUFF INH Q6H, #1 INH 0 Refills Prov: Kiet Andrew 06/03/18 Prednisone* (PREDNISONE*) 20 Mg Tablet 40 MG ORAL DAILY for 4 Days, #8 TAB Prov: Kiet Andrew 06/03/18 Referrals: [facility],REFERRING (PCP) Patient Instructions: Acute Bronchitis, [id number], Upper Respiratory Infection, Adult Additional Instructions: Followup with primary care provider in 3 -5 days. Discussed referral to pulmonology and need for steroid inhaler at that time. Take medications as directed. Don't smoke. Patient questions asked and answered. ER precautions given, patient instructed to return to ER immediately for any new or worsening of symptoms. Kiet Andrew Jun 03, 2018 17:23
[2018-06-03] MEDS ORDERED: Benzonatate 100mg Perles ORAL ONE (17:30)
[2018-06-03] MEDS ORDERED: Albuterol/Ipratropium 3ml neb HHN ONE (17:30)
--- NOTE | 2018-06-03 18:05 | Diagnostic Imaging Report ---
EXAM: XR Chest, 1 View CLINICAL HISTORY: COUGH TECHNIQUE: Frontal view of the chest. COMPARISON: 03/31/2018 FINDINGS: Lungs: Unremarkable. No consolidation. Pleural space: Unremarkable. No pneumothorax. Heart: Unremarkable. No cardiomegaly. Mediastinum: Unremarkable. Bones/joints: No acute osseous abnormality. Stable scoliosis. IMPRESSION: No acute cardiopulmonary process.
[2018-06-03] MEDS ORDERED: SUDAFED PE PRE1 EAC3 PO (18:39)
[2018-06-03] MEDS ORDERED: ALBUTEROL SULF8.5 GM INH (18:39)
[2018-06-03] MEDS ORDERED: PREDNISONE20 MG ORAL (18:39)
[2018-06-03] MEDS ORDERED: FLUTICASONE PRO16 G1 NASAL (18:39)
[2018-06-03 18:57] VITALS: BP 107/69
== END 2018-06-03 18:45 | disposition home or self-care (01) ==
LOC: EMR 17:15
DX: J06.9 Acute upper respiratory infection, unspecified (principal); J40 Bronchitis, not specified as acute or chronic
CPT/HCPCS: 71045; 94640; 99284; J7512; J7620

== ENCOUNTER 2018-09-30 16:31 | Emergency (ER) | payer OTHER ==
[~2018-09-30] VITALS: Ht 172.7 cm; Wt 74.8 kg
[~2018-09-30 16:31] MED LIST changes: +FLUTICASONE PRO16 G1 NASAL; +SUDAFED PE PRE1 EAC3 PO; +VENTOLIN HFA18 GM INH
--- NOTE | 2018-09-30 16:45 | NUR ---
ED Nurse Note: pt walked in c/o flu like sx since yesterday, pt reports he has cough, sorethroat, earache, headache, bodyache and nasal congestion w/ runny nose. pt resp even and unlabored on RA, airway intact, noted dry occasional cough, will cont monitor and wait for futher orders.
--- NOTE | 2018-09-30 17:13 | NUR ---
ED Nurse Note: called RT for breathing tx.
[2018-09-30] MEDS ORDERED: Albuterol ud Inhalation HHN ONE (17:15)
[2018-09-30 17:17] VITALS: BP 135/60
--- NOTE | 2018-09-30 17:53 | Emergency Room Report ---
History of Present Illness General Chief Complaint: Flu Like Symptoms Source: Medical Record Present Illness HPI 37 YO Male presents to the ED c/o itchy dry 10/10 in severity cough, nasal congestion/rhinorrhea, chills, sore throat and exacerbation of asthma/wheezing Since yesterday ( 1 day). Pt. reports 5/10 in severity SANDERS as well, he denies sudden onset. Patient reports he returned from [facility] recently and noticed his symptoms acute onset after returning to work. Reports hx of intermittent asthma and states he is out of his inhaler at home. Reports THC smoking use. Patient reports recent allergy testing shows that he has multiple plant allergies as well as to mold. 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 Patient denies fevers he denies recent ill contacts denies rashes, swelling of the lips or tongue. Denies sudden onset headache, photophobia or neck pain/ stiffness. Denies taking any OTC medications in attempt to relieve his symptoms. denies aggravating or relieving factors at this time. Denies CP, palpitations, hemoptysis or SOB. Allergies: Coded Allergies: No Known Allergies (Unverified , 03/14/17) Patient History Past Medical History: see triage record Past Surgical History: none Pertinent Family History: none Reviewed Nursing Documentation: PMH: Agreed; PSxH: Agreed Nursing Documentation-PMH Past Medical History: No History, Except For Hx Cardiac Problems: No - VIT D defficient Review of Systems All Other Systems: negative except mentioned in HPI Physical Exam Vital Signs Date Time Temp Pulse Resp B/P (MAP) Pulse Ox O2 Delivery O2 Flow Rate FiO2 09/30/18 16:41 98.2 84 16 135/60 (85) 97 Room Air 09/30/18 17:16 21 Sp02 EP Interpretation: reviewed, normal General Appearance: well appearing, no apparent distress, alert, GCS 15, non- toxic Head: normocephalic, atraumatic Eyes: bilateral eye normal inspection, bilateral eye PERRL ENT: hearing grossly normal, normal pharynx, normal voice, TMs + canals normal , uvula midline, nasal congestion Neck: full range of motion, no meningismus, no bony tend Respiratory: chest non-tender, lungs clear, normal breath sounds, no rhonchi, no respiratory distress, speaking full sentences, wheezing Cardiovascular #1: regular rate, rhythm, no edema Musculoskeletal: back normal, gait/station normal, normal range of motion, non- tender Neurologic: alert, oriented x3, responsive, motor strength/tone normal, sensory intact, speech normal, grossly normal Psychiatric: judgement/insight normal Skin: normal color, no rash, warm/dry, well hydrated Lymphatic: no adenopathy Medical Decision Making PA Attestation Dr. Angel Is my supervising Physician whom patient management has been discussed with. Diagnostic Impression: Primary Impression: Upper respiratory symptom Additional Impression: Upper respiratory tract hypersensitivity reaction ER Course 37 YO Male presents to the ED c/o itchy dry 10/10 in severity cough, nasal congestion/rhinorrhea, chills, sore throat and exacerbation of asthma/wheezing Since yesterday ( 1 day). Pt. reports 5/10 in severity SANDERS as well, he denies sudden onset. Patient reports he returned from [facility] recently and noticed his symptoms acute onset after returning to work. Reports hx of intermittent asthma and states he is out of his inhaler at home. Reports THC smoking use. Patient reports recent allergy testing shows that he has multiple plant allergies as well as to mold. 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 Patient denies fevers he denies recent ill contacts denies rashes, swelling of the lips or tongue. Denies sudden onset headache, photophobia or neck pain/ stiffness. Denies taking any OTC medications in attempt to relieve his symptoms. denies aggravating or relieving factors at this time. Denies CP, palpitations, hemoptysis or SOB. Ddx considered but are not limited to URI, pneumonia, PE, strep pharyngitis, meningitis,asthma, allergies just to name a few. Vital signs: Pt. is afebrile, the remaining VS are WNL H&PE are most consistent with Exacerbation of asthma and URI/ viral syndrome- no meningeal signs, oropharynx is not involved, no evidence of bacterial infection at this time. No evidence of meningitis. ORDERS: none required at this time, the diagnosis is clinical ED INTERVENTIONS: -Albuterol HHN. -Tylenol PO DISCHARGE: At this time pt. is stable for d/c to home. Will provide printed patient care instructions, and any necessary prescriptions. Care plan and follow up instructions have been discussed with the patient prior to discharge. Last Vital Signs Date Time Temp Pulse Resp B/P (MAP) Pulse Ox O2 Delivery O2 Flow Rate FiO2 6/7/19 17:41 99 20 99 Room Air 21 09/30/18 17:17 98.2 135/60 Status: improved Disposition: HOME, SELF-CARE Condition: Stable Scripts Acetaminophen* (TYLENOL EXTRA STRENGTH*) 500 Mg Tablet 500 MG ORAL Q6H PRN for Mild Pain/Temp > 100.5, #20 TAB 0 Refills Prov: Katy Vee 09/30/18 Albuterol Sulfate* (ALBUTEROL SULFATE MDI*) 8.5 Gm Hfa.aer.ad 2 PUFF INH Q4H, #1 INH 0 Refills Prov: Katy Vee 09/30/18 Cetirizine Hcl* (ZYRTEC*) 10 Mg Tablet 10 MG ORAL DAILY, #30 TAB 0 Refills Prov: Katy Vee 09/30/18 Codeine/Promethazine Hcl* (PROMETHAZINE-CODEINE SYRUP*) 118 Ml Syrup 5 ML ORAL Q6H PRN for For Cough, #120 ML 0 Refills Prov: Katy Vee 09/30/18 Patient Instructions: Allergies, [id number], Upper Respiratory Infection, Adult Additional Instructions: Take medications as directed. Follow up with a Primary Care Provider in 3-5 days, even if your symptoms have resolved. --Please review list of primary care clinics, if you do not already have a primary care provider Return sooner to ED if new symptoms occur, or current symptoms become worse. Do not drink alcohol, drive, or operate heavy machinery while taking Cough Syrup as this may cause drowsiness. - Please note that this Emergency Department Report was dictated using [employer] operator technology software, occasionally this can lead to erroneous entry secondary to interpretation by the dictation equipment. Katy Vee Sep 30, 2018 17:53
[2018-09-30] MEDS ORDERED: ZYRTEC10 MG ORAL (17:55)
[2018-09-30] MEDS ORDERED: PROMETHAZINE-C118 M1 ORAL (17:55)
[2018-09-30] MEDS ORDERED: ALBUTEROL SULF8.5 GM INH (17:55)
[2018-09-30] MEDS ORDERED: TYLENOL EXTRA500 MG ORAL (18:04)
--- NOTE | 2018-09-30 18:19 | NUR ---
ED Nurse Note: pt cleared to be d/c per ER provider, pt discharge and aftercare instruction provided w/ prescription, pt education done via discussion and handout, pt advised to follow up with pcp or return to ed if changes in condition, pt verbalized understanding and agrees with plan, vss, ambulatory w/ steady gait, left w/ all belongings.
[2018-09-30 18:20] VITALS: BP 128/67
== END 2018-09-30 19:00 | disposition home or self-care (01) ==
LOC: EMR 17:12
DX: J06.9 Acute upper respiratory infection, unspecified (principal)
CPT/HCPCS: 94640; 94664; 99284

== ENCOUNTER 2018-10-31 08:45 | Emergency (ER) | payer OTHER ==
[~2018-10-31] VITALS: Ht 172.7 cm; Wt 79.4 kg
[~2018-10-31 08:45] MED LIST changes: +ZYRTEC10 MG ORAL
--- NOTE | 2018-10-31 08:50 | NUR ---
ED Nurse Note: pt states diarrhea with n/v after eating taco kendrick, started yest morning. pt states unable to tolerate po intake. abd cramping. no dyspnea no blood in stool or vomit
[2018-10-31] MEDS ORDERED: Mylanta II UD 30ml ORAL ONE (09:15)
[2018-10-31] MEDS ORDERED: Dicyclomine HCl 10mg/5ml oral soln ORAL ONE (09:15)
[2018-10-31] MEDS ORDERED: Lidocaine 2% Visc 15ml soln ORAL ONE (09:15)
[2018-10-31 09:17] LABS: BASOPHILS % (AUTO) 0.7 % (0.0-2.0); EOSINOPHILS % (AUTO) 5.5 % (0.0-3.0); HEMATOCRIT 45.8 % (42.0-52.0); HEMOGLOBIN 15.4 G/DL (14.2-18.0); LYMPHOCYTES % (AUTO) 18.3 % (20.0-45.0); MEAN CORPUSCULAR VOLUME 89 FL (80-99); MONOCYTES % (AUTO) 8.1 % (1.0-10.0); NEUTROPHILS % (AUTO) 67.4 % (45.0-75.0); PLATELET COUNT 254 K/UL (150-450); RED BLOOD COUNT 5.12 M/UL (4.70-6.10); RED CELL DISTRIBUTION WIDTH 11.1 % (11.6-14.8); WHITE BLOOD COUNT 7.8 K/UL (4.8-10.8)
--- NOTE | 2018-10-31 09:24 | NUR ---
ED Nurse Note: pt tolerates iv start and labs well.
[2018-10-31 09:30] LABS: ANION GAP 11 mmol/L (5-15); BLOOD UREA NITROGEN 9 mg/dL (7-18); CALCIUM 8.7 MG/DL (8.5-10.1); CARBON DIOXIDE 25 MMOL/L (21-32); CHLORIDE 103 MMOL/L (98-107); CREATININE 0.9 MG/DL (0.55-1.30); POTASSIUM 3.7 MMOL/L (3.5-5.1); SODIUM 139 MMOL/L (136-145)
--- NOTE | 2018-10-31 09:34 | Emergency Room Report ---
History of Present Illness General Chief Complaint: Nausea, Vomiting, and Diarrhea Source: Patient Present Illness HPI 38-year-old male presents ED for evaluation. Patient walked in complaining of abdominal pain with vomiting and diarrhea. Started last night after eating food. Notes multiple episodes of diarrhea. Also multiple episodes of vomiting. Pain is cramping, 5 out of 10, nonradiating. Denies recent travel or denies recent antibiotic use. No other aggravating relieving factors. Denies any other associated symptoms Allergies: Coded Allergies: No Known Allergies (Unverified , 03/14/17) Patient History Past Medical History: none Past Surgical History: none Pertinent Family History: none Social History: Denies: smoking, alcohol use, drug use Immunizations: UTD Reviewed Nursing Documentation: PMH: Agreed; PSxH: Agreed Nursing Documentation-PMH Past Medical History: No Stated History Hx Cardiac Problems: No Review of Systems All Other Systems: negative except mentioned in HPI Physical Exam Vital Signs Date Time Temp Pulse Resp B/P (MAP) Pulse Ox O2 Delivery O2 Flow Rate FiO2 10/31/18 08:47 99.0 66 18 119/64 (82) 99 Room Air Sp02 EP Interpretation: reviewed, normal General Appearance: no apparent distress, alert, GCS 15, non-toxic Head: normocephalic, atraumatic Eyes: bilateral eye normal inspection, bilateral eye PERRL ENT: hearing grossly normal, normal pharynx, no angioedema, normal voice Neck: full range of motion, supple/symm/no masses Respiratory: chest non-tender, lungs clear, normal breath sounds, speaking full sentences Cardiovascular #1: regular rate, rhythm, no edema Cardiovascular #2: 2+ carotid (R), 2+ carotid (L), 2+ radial (R), 2+ radial (L) , 2+ dorsalis pedis (R), 2+ dorsalis pedis (L) Gastrointestinal: normal bowel sounds, non tender, soft, non-distended, no guarding, no rebound Rectal: deferred Genitourinary: normal inspection, no CVA tenderness Musculoskeletal: back normal, gait/station normal, normal range of motion, non- tender Neurologic: alert, oriented x3, responsive, motor strength/tone normal, sensory intact, speech normal Psychiatric: judgement/insight normal, memory normal, mood/affect normal, no suicidal/homicidal ideation Reflexes: 3+ bicep (R), 3+ bicep (L), 3+ tricep (R), 3+ tricep (L), 3+ knee (R) , 3+ knee (L) Lymphatic: no adenopathy Medical Decision Making Diagnostic Impression: Primary Impression: Gastroenteritis ER Course Hospital Course 38 yo M presents with abd pain, vomiting and diarrhea differential diagnosis: gastritis, SBO, cholecystits, gastroenteritis Clinical course Patient placed on stretcher. On monitor worker. After initial history and physical I ordered labs, IV fluids, GI cocktail, pepcid and zofran Labs - no leukocytosis, electrolytes ok, LFTs normal Upon reassessment, patient states pain has improved. discussed findings with patient. Consideration for gastroenteritis safe for discharge with close outpatient follow-up. States he has a PMD I feel this is a highly complex case requiring extensive working including EKG/ Rhythm strip, Xray/CT/US, Blood/urine lab work, repeat exams while in ED, and administration of strong opiates/narcotics for pain control, admission to hospital or close patient follow up. Diagnosis - gastroenteritis Stable and discharged to home with prescriptions for Zantac, zofran, bentyl. Followup with PMD. Return to ED if symptoms recur or worsen Labs Test 10/31/18 09:00 White Blood Count 7.8 K/UL (4.8-10.8) Red Blood Count 5.12 M/UL (4.70-6.10) Hemoglobin 15.4 G/DL (14.2-18.0) Hematocrit 45.8 % (42.0-52.0) Mean Corpuscular Volume 89 FL (80-99) Mean Corpuscular Hemoglobin 30.1 PG (27.0-31.0) Mean Corpuscular Hemoglobin Concent 33.7 G/DL (32.0-36.0) Red Cell Distribution Width 11.1 % (11.6-14.8) Platelet Count 254 K/UL (150-450) Mean Platelet Volume 5.8 FL (6.5-10.1) Neutrophils (%) (Auto) 67.4 % (45.0-75.0) Lymphocytes (%) (Auto) 18.3 % (20.0-45.0) Monocytes (%) (Auto) 8.1 % (1.0-10.0) Eosinophils (%) (Auto) 5.5 % (0.0-3.0) Basophils (%) (Auto) 0.7 % (0.0-2.0) Sodium Level 139 MMOL/L (136-145) Potassium Level 3.7 MMOL/L (3.5-5.1) Chloride Level 103 MMOL/L (98-107) Carbon Dioxide Level 25 MMOL/L (21-32) Anion Gap 11 mmol/L (5-15) Blood Urea Nitrogen 9 mg/dL (7-18) Creatinine 0.9 MG/DL (0.55-1.30) Estimat Glomerular Filtration Rate > 60 mL/min (>60) Glucose Level 103 MG/DL (74-106) Calcium Level 8.7 MG/DL (8.5-10.1) Total Bilirubin 0.7 MG/DL (0.2-1.0) Aspartate Amino Transf (AST/SGOT) 20 U/L (15-37) Alanine Aminotransferase (ALT/SGPT) 38 U/L (12-78) Alkaline Phosphatase 75 U/L (46-116) Total Protein 7.6 G/DL (6.4-8.2) Albumin 4.3 G/DL (3.4-5.0) Globulin 3.3 g/dL Albumin/Globulin Ratio 1.3 (1.0-2.7) Lipase 118 U/L (73-393) Last Vital Signs Date Time Temp Pulse Resp B/P (MAP) Pulse Ox O2 Delivery O2 Flow Rate FiO2 10/31/18 08:47 99.0 66 18 119/64 (82) 99 Room Air Status: improved Disposition: HOME, SELF-CARE Condition: Stable Scripts Dicyclomine Hcl* (DICYCLOMINE HCL*) 10 Mg Capsule 10 MG ORAL QID, #20 CAP Prov: Andrew Almonte MD 10/31/18 Ranitidine Hcl* (ZANTAC*) 150 Mg Tablet 150 MG ORAL TWICE A DAY, #30 TAB Prov: Andrew Almonte MD 10/31/18 Ondansetron Odt* (ZOFRAN ODT*) 4 Mg Tab.rapdis 4 MG BC EVERY 6 HOURS PRN for Nausea & Vomiting, #20 TAB 0 Refills Prov: Andrew Almonte MD 10/31/18 Referrals: [facility]ERR[facility] (PCP) Andrew Almonte MD Oct 31, 2018 09:34
[2018-10-31 09:39] LABS: ALANINE AMINOTRANSFERASE 38 U/L (12-78); ALBUMIN 4.3 G/DL (3.4-5.0); ALBUMIN/GLOBULIN RATIO 1.3 (1.0-2.7); ALKALINE PHOSPHATASE 75 U/L (46-116); ASPARTATE AMINO TRANSFERASE 20 U/L (15-37); BILIRUBIN,TOTAL 0.7 MG/DL (0.2-1.0)
[2018-10-31] MEDS ORDERED: DICYCLOMINE HCL10 MG ORAL (10:18)
[2018-10-31] MEDS ORDERED: RANITIDINE HCL150 MG ORAL (10:18)
[2018-10-31] MEDS ORDERED: ONDANSETRON ODT4 MG BC (10:18)
--- NOTE | 2018-10-31 10:33 | NUR ---
ED Nurse Note: Pt cleared by health care Provider for discharge. DC instructions/prescription was given and explained to pt and verbalized understanding of teachings. All medical devices such as ID band removed. Pt is AAO x4, ambulatory and left with all personal belongings.
[2018-10-31 10:34] VITALS: BP 113/58
== END 2018-10-31 10:36 | disposition home or self-care (01) ==
LOC: EMR 09:10
DX: K52.9 Noninfective gastroenteritis and colitis, unspecified (principal)
CPT/HCPCS: 36415; 80053; 83690; 85025; 96361; 96374; 96375; 99284; J2405; S0028

== ENCOUNTER 2019-04-19 11:26 | Emergency (ER) | payer OTHER ==
[~2019-04-19] VITALS: Ht 172.7 cm; Wt 72.6 kg
[~2019-04-19 11:26] MED LIST changes: +DICYCLOMINE HCL10 MG ORAL; +ONDANSETRON ODT4 MG BC; +RANITIDINE HCL150 MG ORAL
--- NOTE | 2019-04-19 11:32 | NUR ---
ED Nurse Note: pt walked in to ER from home due to SOB for 2 weeks and worsening this morning. pt reported he has taken Albuterol Neb but did not improve. O2 sat in room air 97%. pt aao x4 and ambulatory. skin clean and intact. mild anxious but cooperative. pt is in gown and on color television console monitor.
[2019-04-19 11:39] VITALS: BP 122/54
--- NOTE | 2019-04-19 11:41 | NUR ---
ED Nurse Note: ERMD at bedside.
[2019-04-19] MEDS: Ipratropium 0.02% Inh Soln 2.5ml UD HHN SCH ×2 (11:50→12:15)
[2019-04-19] MEDS: Albuterol ud Inhalation HHN SCH ×2 (11:51→12:15)
--- NOTE | 2019-04-19 11:51 | NUR ---
ED Nurse Note: x-ray at bedside.
[2019-04-19] MEDS ORDERED: PROMETHAZINE-C118 M1 ORAL (12:31)
[2019-04-19] MEDS ORDERED: ALBUTEROL SULF8.5 GM INH (12:31)
[2019-04-19] MEDS ORDERED: PREDNISONE20 MG ORAL (12:31)
[2019-04-19] MEDS ORDERED: AMOXICILLIN500 MG ORAL (12:31)
--- NOTE | 2019-04-19 12:33 | Diagnostic Imaging Report ---
EXAM: XR Chest, 1 View CLINICAL HISTORY: COUGH TECHNIQUE: Frontal view of the chest. COMPARISON: No relevant prior studies available. FINDINGS: Lungs: Unremarkable. No consolidation. Pleural space: Unremarkable. No pneumothorax. Heart: Unremarkable. No cardiomegaly. Mediastinum: Unremarkable. Bones/joints: Mild midthoracic scoliosis. IMPRESSION: No acute findings in the chest.
[2019-04-19 12:45] VITALS: BP 128/70
--- NOTE | 2019-04-19 12:45 | NUR ---
ER DISCHARGE NOTE: Patient is cleared to be discharged per ERMD, pt is aox4, on room air, with stable vital signs. pt was given dc and prescription instructions, pt was able to verbalize understanding, pt id band removed. pt is able to ambulate with steady gait. pt took all belongings.
--- NOTE | 2019-04-19 14:27 | Emergency Room Report ---
History of Present Illness General Chief Complaint: Dyspnea/Respdistress Source: Patient Present Illness HPI 38-year-old male presents ED for evaluation. Complaining of cough and shortness of breath x1 week. History of asthma. States cough is productive with yellowish phlegm. States there is some blood-tinged sputum as well. States that he does smoke. Denies fevers or chills. Denies sick contacts or recent travel. No other aggravating relieving factors. Denies any other associated symptoms Allergies: Coded Allergies: No Known Allergies (Unverified , 03/14/17) Patient History Past Medical History: asthma Past Surgical History: none Pertinent Family History: none Social History: Reports: smoking; Denies: alcohol use, drug use Immunizations: UTD Reviewed Nursing Documentation: PMH: Agreed; PSxH: Agreed Nursing Documentation-PMH Past Medical History: No History, Except For Hx Cardiac Problems: No Hx Asthma: Yes Review of Systems All Other Systems: negative except mentioned in HPI Physical Exam Vital Signs Date Time Temp Pulse Resp B/P (MAP) Pulse Ox O2 Delivery O2 Flow Rate FiO2 04/19/19 11:31 97.7 57 19 122/54 (76) 97 Room Air 04/19/19 11:52 21 Sp02 EP Interpretation: reviewed, normal General Appearance: no apparent distress, alert, GCS 15, non-toxic Head: normocephalic, atraumatic Eyes: bilateral eye normal inspection, bilateral eye PERRL ENT: hearing grossly normal, normal pharynx, no angioedema, normal voice Neck: full range of motion, supple/symm/no masses Respiratory: chest non-tender, speaking full sentences, wheezing Cardiovascular #1: regular rate, rhythm, no edema Cardiovascular #2: 2+ carotid (R), 2+ carotid (L), 2+ radial (R), 2+ radial (L) , 2+ dorsalis pedis (R), 2+ dorsalis pedis (L) Gastrointestinal: normal bowel sounds, non tender, soft, non-distended, no guarding, no rebound Rectal: deferred Genitourinary: normal inspection, no CVA tenderness Musculoskeletal: back normal, normal range of motion, gait/station normal, non- tender Neurologic: alert, motor strength/tone normal, oriented x3, sensory intact, responsive, speech normal Psychiatric: judgement/insight normal, memory normal, mood/affect normal, no suicidal/homicidal ideation Reflexes: 3+ bicep (R), 3+ bicep (L), 3+ tricep (R), 3+ tricep (L), 3+ knee (R) , 3+ knee (L) Skin: no rash Lymphatic: no adenopathy Medical Decision Making Diagnostic Impression: Primary Impression: Atypical pneumonia ER Course Hospital Course 38-year-old male presents to ED complaining of cough, wheezing Differential diagnoses include: URI, bronchitis, asthma/COPD, pneumonia Clinical course Patient placed on stretcher. After initial history and physical I ordered CXR, prednisone and nebulizer treatment. CXRno focal consolidation or acute process On reassessment patient states he feels better. Wheezing resolved. Given history of blood-tinged sputum and smoking history we will treat with antibiotics. Safe for discharge for close outpatient follow-up. I will provide referrals Diagnosis - atypical pneumonia Stable and discharged home with prescriptions for Rx prednisone, amoxicillin, promethazine/codeine, albuterol. Instructed to followup with PMD. Return to ED if symptoms recur or worsen Chest X-Ray Diagnostic Results Chest X-Ray Diagnostic Results : Chest X-Ray Ordered: Yes # of Views/Limited/Complete: 1 View Indication: Shortness of Breath EP Interpretation: Yes Interpretation: no consolidation, no effusion, no pneumothorax, no acute cardiopulmonary disease Impression: No acute disease Electronically Signed by: Electronically signed by Andrew Almonte MD Last Vital Signs Date Time Temp Pulse Resp B/P (MAP) Pulse Ox O2 Delivery O2 Flow Rate FiO2 04/19/19 12:45 98.4 66 18 128/70 100 Room Air 04/19/19 12:44 21 Status: improved Disposition: HOME, SELF-CARE Condition: Stable Scripts Albuterol Sulfate* (ALBUTEROL SULFATE MDI*) 8.5 Gm Hfa.aer.ad 2 PUFF INH Q6H, #1 EA 0 Refills Prov: Andrew Almonte MD 04/19/19 Codeine/Promethazine Hcl* (PROMETHAZINE-CODEINE SYRUP*) 118 Ml Syrup 5 ML ORAL Q6H PRN for For Cough, #118 ML 0 Refills Prov: Andrew Almonte MD 04/19/19 Prednisone* (PREDNISONE*) 20 Mg Tablet 40 MG ORAL DAILY, #10 TAB Prov: Andrew Almonte MD 04/19/19 Amoxicillin* (AMOXIL*) 500 Mg Capsule 500 MG ORAL THREE TIMES A DAY, #21 CAP Prov: nAdrew Almonte MD 04/19/19 Referrals: [facility] Patient Instructions: Community-Acquired Pneumonia, Adult, [id number] Andrew Almonte MD Apr 19, 2019 14:27
== END 2019-04-19 12:45 | disposition home or self-care (01) ==
LOC: EMR 12:15
DX: J18.9 Pneumonia, unspecified organism (principal); F17.200 Nicotine dependence, unspecified, uncomplicated
CPT/HCPCS: 71045; J7512; Z7502; 99284